=== PATIENT | female | born 1975 | race Two or more races ===

== ENCOUNTER → 2022-03-11 | Emergency (ER) | payer OTHER ==
[~2022-03-11] VITALS: Ht 165.1 cm; Wt 154.2 kg
[~2022-03-11] MED LIST: COZAAR25 MG PO
== END | disposition home or self-care (01) ==
LOC: ER 12:31
DX: M12.561 Traumatic arthropathy, right knee (principal); W18.30XA Fall on same level, unspecified, initial encounter; Y93.89 Activity, other specified; Y92.59 Other trade areas as the place of occurrence of the external cause